=== PATIENT | male | born 1960 | race Caucasian/White ===

== ENCOUNTER 2017-07-10 00:31 | Emergency (ER) | payer OTHER ==
[~2017-07-10] VITALS: Ht 177.8 cm; Wt 104.0 kg
[2017-07-10 00:41] VITALS: Ht 177.8 cm; Wt 104.0 kg
[2017-07-10] MEDS ORDERED: DIPHTH/TET/ACEL PERTUSS (ADULT) 0.5 ML VIAL IM* ONE (02:00)
--- NOTE | 2017-07-15 01:40 | ERD ---
ER Documentation Chief Complaint Chief Complaint laceration left arm HPI 57-year-old male presents here to emergency department for complaints of left forearm laceration wound, patient accidentally cut himself with a box knife. Patient unknown tetanus immunization. Patient denies any foreign body on affected area. Does complain of pain sharp pain 4/10 scale, as was upon touching. ROS All systems reviewed and are negative except as per history of present illness. Medications Home Meds Reported Medications [none] Unknown Strength No Conflict Check 07/15/17 Allergies Allergies: Coded Allergies: Penicillins (Verified Allergy, Unknown, 07/10/17) PMhx/Soc Medical and Surgical Hx: pt denies Medical Hx History of Surgery: Yes (right finger sx) Anesthesia Reaction: No Hx Neurological Disorder: No Hx Respiratory Disorders: No Hx Cardiac Disorders: No Hx Psychiatric Problems: No Hx Miscellaneous Medical Probl: No Hx Alcohol Use: Yes Hx Substance Use: No Hx Tobacco Use: No Smoking Status: Never smoker FmHx Family History: No coronary disease, No diabetes, No other Physical Exam Physical Exam GENERAL: The patient is well developed and appropriate for usual state of health, in no apparent distress. CHEST: Clear to auscultation bilaterally. There are no rales, wheezes or rhonchi. HEART: Regular rate and rhythm. No murmurs, clicks, rubs or gallops. No S3 or S4. ABDOMEN: Soft, nontender and nondistended. Good bowel sounds. No rebound or guarding. No gross peritonitis. No gross organomegaly or masses. No Junior sign or McBurney point tenderness. BACK: No midline or flank tenderness. EXTREMITIES: Equal pulses bilaterally. There is no peripheral clubbing, cyanosis or edema. No focal swelling or erythema. Full range of motion. Grossly neurovascularly intact. NEURO: Alert and oriented. Cranial nerves 2-12 intact. Motor strength in all 4 extremities with 5/5 strength. Sensation grossly intact. Normal speech and gait. SKIN: 1 cm laceration wound noted on the left forearm. No foreign body noted. No tendon involvement noted. There is no apparent rash or petechia. The skin is warm and dry. HEMATOLOGIC AND LYMPHATIC: There is no evidence of excessive bruising or lymphedema. No gross cervical, axillary, or inguinal lymphadenopathy. Results 24 hrs Current Medications Medications (Trade) Dose Ordered Sig/Vanessa Route PRN Reason Start Time Stop Time Status Last Admin Dose Admin Diphtheria/ Tetanus/Acell Pertussis (Adacel) 0.5 ml ONCE ONCE IM* 07/10/17 02:00 07/10/17 02:01 DC 07/10/17 02:23 Tdap was given to prevent tetanus. Patient tolerated medication well. Procedures/MDM Procedure Note: After obtaining informed consent, the wound was irrigated with 250 ml of normal saline and cleaned with diluted betadine. Using aseptic technique, the wound was approximated using a dermabond. After the procedure, the wound was well approximated. Patient tolerated procedure well. Medical Decision Making: Patient's symptoms consistent with a laceration, this was repaired using Dermabond without any difficulty. There is no suspicion for neurovascular compromise. Patient has intact sensation and circulation of the affected extremity. There is low suspicion for septic arthritis. Patient does not have any fever. Disposition: Home. Patient is to take [id number] ibuprofen for pain. Patient was advised to elevate the affected area and apply ice on affected area. Patient was advised that if symptoms are worse, numbness, tingling, high fever, unable to move joint, worsening symptoms, to return to emergency department immediately. Otherwise, patient is advised to follow up with the primary care doctor in 1- 2 days for wound check, avoid chemicals or resting the area for at least 7-10 days. Disclaimer: Inadvertent spelling and grammatical errors are likely due to EHR/ dictation software use and do not reflect on the overall quality of patient care. Also, please note that the electronic time recorded on this note does not necessarily reflect the actual time of the patient encounter. Departure Diagnosis: Primary Impression: Forearm laceration Encounter type: initial encounter Laterality: left Qualified Code: S51.812A - Laceration of left forearm, initial encounter Condition: Stable Patient Instructions: Laceration, Extremity (Skin Glue) Additional Instructions: recheck in 2 days, keep area day for 10 days, avoid chemicals FERMIN FRITZ NP Jul 15, 2017 01:40
== END 2017-07-10 02:30 | disposition home or self-care (01) ==
LOC: FTE 00:31
DX: S51.812A Laceration without foreign body of left forearm, initial encounter (principal); W26.0XXA Contact with knife, initial encounter; Y92.9 Unspecified place or not applicable; Z23 Encounter for immunization
CPT/HCPCS: 90471; 90715